=== PATIENT | female | born 1945 | race Two or more races ===

== ENCOUNTER 2020-05-07 09:57 | Outpatient (CLI) | payer OTHER | END 2020-05-07 10:02 | disposition home or self-care (01) | LOC: SONOGRAMA 09:57 | PROVIDERS: ATTEND Pathology Anatomic Pathology | DX: E04.2 Nontoxic multinodular goiter (principal) ==

== ENCOUNTER 2021-01-21 09:40 | Outpatient (CLI) | payer OTHER | END 2021-01-21 09:43 | disposition home or self-care (01) | LOC: SONOGRAMA 09:40 | PROVIDERS: ATTEND Pathology Anatomic Pathology & Clinical Pathology | DX: R59.1 Generalized enlarged lymph nodes (principal) ==